=== PATIENT | female | born 1960 | race African-American/Black ===

== ENCOUNTER 2019-03-21 18:28 | Emergency (ER) | payer OTHER ==
--- NOTE | 2019-03-21 18:38 | PDOC ---
Rapid Medical Evaluation Chief Complaint: Pain, Acute Time Seen by Provider: 03/21/19 18:32 Medical Evaluation: Allergies Allergy/AdvReac Type Severity Reaction Status Date / Time aspirin Allergy Intermediate Hives Verified 12/19/14 13:42 Penicillins Allergy Intermediate Hives Verified 12/19/14 13:42 03/21/19 18:33 I have performed a brief in-person evaluation of this patient. The patient presents with a chief complaint of:right elbow pain since yest. progressively worsen= no relief with tylenol or pain patches. Pertinent physical exam findings: pain to medial malleolus with decreased ROM I have ordered the following: Xray right elbow The patient will proceed to the ED for further evaluation. Discharge Disposition - Diagnosis Elbow pain, right - Referrals - Patient Instructions - Post Discharge Activity
[2019-03-21 18:39] VITALS: BP 152/86; PULSE 106; TEMP 98.1; BMI 27.9
--- NOTE | 2019-03-21 19:51 | PDOC ---
History of Present Illness - General Chief Complaint: Pain, Acute Stated Complaint: PAIN IN RIGHT ARM Time Seen by Provider: 03/21/19 18:32 History Source: Patient Exam Limitations: No Limitations (right elbow) - History of Present Illness Associated Symptoms: denies: fever/chills Past History - Travel Traveled outside of the country in the last 30 days: No - Past Medical History Allergies/Adverse Reactions: Allergies Allergy/AdvReac Type Severity Reaction Status Date / Time aspirin Allergy Intermediate Hives Verified 12/19/14 13:42 Penicillins Allergy Intermediate Hives Verified 12/19/14 13:42 ibuprofen Allergy Verified 03/21/19 18:39 Home Medications: Ambulatory Orders Albuterol Sulfate Inhaler - [Ventolin HFA Inhaler -] 2 inh PO Q4H PRN #1 inh Azithromycin [Zithromax 250mg Tablets -] 250 mg PO UTDICT #6 tab 12/19/14 Cetirizine HCl [Zyrtec -] 10 mg PO DAILY #10 tablet 12/19/14 predniSONE [Deltasone -] 20 mg PO BID #8 tablet 12/19/14 Asthma: Yes COPD: No - Surgical History Appendectomy: Yes - Immunization History Immunization Up to Date: Yes - Suicide/Smoking/Psychosocial Hx Smoking History: Current every day smoker Have you smoked in the past 12 months: Yes Number of Cigarettes Smoked Daily: 5 Information on smoking cessation initiated: No Hx Alcohol Use: Yes Drug/Substance Use Hx: Yes Review of Systems - Review of Systems Able to Perform ROS?: Yes Is the patient limited [place] proficient: No Constitutional: No: Chills, Fever Musculoskeletal: Yes: Joint Pain (Right elbow). 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 NML intact, Fully Oriented, Alert, Normal Mood/ Affect, Normal Response, Motor Strength 02/04 Medical Decision Making - Medical Decision Making 03/21/19 19:48 R elbow pain since today, denies trauma, f/c xray consistent with calcified tendonitis Tylenol compress ortho f/u if pain persist pt refusing pain control in ER 03/22/19 13:58 03/22/19 13:59 *DC/Admit/Observation/Transfer Diagnosis at time of Disposition: Elbow pain, right, Tendonitis of elbow, right - Discharge Dispostion Disposition: HOME Condition at time of disposition: Stable - Referrals Referrals: Vernon Duke MD [Staff Physician] - - Patient Instructions Printed Discharge Instructions: DI for Lateral Epicondylitis (Tennis Elbow) Additional Instructions: Your xray negative for acute fracture Your symptoms consistent of tendonitis please take Tylenol for pain follow up with orthopedics for further evaluation return to the ER if worsening symptoms occurs. - Post Discharge Activity
== END 2019-03-21 19:56 | disposition home or self-care (01) ==
LOC: JERFT 18:28
DX: M77.8 Other enthesopathies, not elsewhere classified (principal)
CPT/HCPCS: 73070-TC-RT-FY; 99281-25